=== PATIENT | female | born 1995 | race Caucasian/White ===

== ENCOUNTER 2021-11-02 09:02 | Outpatient (CLI) | payer BC | END 2021-11-02 09:03 | disposition home or self-care (01) | LOC: SCSMRI 09:02 | PROVIDERS: ATTEND Orthopaedic Surgery Hand Surgery | DX: S63.592A Other specified sprain of left wrist, initial encounter (principal); M67.432 Ganglion, left wrist; S63.072A Subluxation of distal end of left ulna, initial encounter ==